=== PATIENT | male | born 1990 | race Hispanic/Latino ===

== ENCOUNTER 2018-03-25 13:54 | Emergency (ER) | payer BC ==
[~2018-03-25] VITALS: Ht 188 cm; Wt 88.5 kg
[2018-03-25 16:05] VITALS: BP 140/77
[2018-03-25] MEDS ORDERED: ZOFRAN ODT4 MG SL (16:18)
[2018-03-25] MEDS ORDERED: BENTYL10 MG/1 ML PO (16:18)
== END 2018-03-25 16:30 | disposition home or self-care (01) ==
LOC: ER 13:54 → FSED 16:30
DX: R10.31 Right lower quadrant pain (principal); R11.0 Nausea; K52.9 Noninfective gastroenteritis and colitis, unspecified
CPT/HCPCS: 80053; 85025; 99283